=== PATIENT | female | born 1980 | race African-American/Black ===

== ENCOUNTER → 2018-02-09 | Outpatient (CLI) | payer BC | LOC: COL.RAD 07:24 | DX: K21.9 Gastro-esophageal reflux disease without esophagitis (principal); R12 Heartburn; R10.9 Unspecified abdominal pain; R11.0 Nausea | CPT/HCPCS: A9541 ==

== ENCOUNTER → 2018-03-30 | Outpatient (CLI) | payer BC | LOC: COL.RAD 13:37 | DX: R10.9 Unspecified abdominal pain (principal); R11.0 Nausea ==

== ENCOUNTER → 2018-04-13 | Outpatient (CLI) | payer BC | LOC: COL.LAB 09:49 | DX: J90 Pleural effusion, not elsewhere classified (principal) ==

== ENCOUNTER → 2018-09-15 | Outpatient (CLI) | payer BC | LOC: COL.LAB 12:14 | DX: K58.9 Irritable bowel syndrome, unspecified (principal); K21.9 Gastro-esophageal reflux disease without esophagitis ==

== ENCOUNTER → 2019-09-14 | Outpatient (CLI) | payer BC | LOC: MC.RAD 13:52 | DX: N64.4 Mastodynia (principal) | CPT/HCPCS: G0279 ==

== ENCOUNTER → 2020-02-29 | Outpatient (CLI) | payer BC | LOC: COL.LAB 11:55 | DX: R68.2 Dry mouth, unspecified (principal); R43.9 Unspecified disturbances of smell and taste; Z20.828 Contact with and (suspected) exposure to other viral communicable diseases ==

== ENCOUNTER 2021-02-28 23:40 | Emergency (ER) | payer BC ==
[~2021-02-28] VITALS: Ht 162.6 cm; Wt 79.5 kg
[2021-02-28 23:59] VITALS: TEMP 98.4
[2021-03-01 03:30] VITALS: BP 130/60; PULSE 80
== END 2021-03-01 03:35 | disposition home or self-care (01) ==
LOC: COL.ER 23:40
DX: S02.2XXA Fracture of nasal bones, initial encounter for closed fracture (principal); S01.81XA Laceration without foreign body of other part of head, initial encounter; W18.12XA Fall from or off toilet with subsequent striking against object, initial encounter; Y92.009 Unspecified place in unspecified non-institutional (private) residence as the place of occurrence of the external cause

== ENCOUNTER → 2021-06-05 | Outpatient (CLI) | payer BC | LOC: MC.RAD 14:25 | DX: Z12.31 Encounter for screening mammogram for malignant neoplasm of breast (principal); N64.89 Other specified disorders of breast ==

== ENCOUNTER → 2021-06-12 | Outpatient (CLI) | payer BC | LOC: MC.RAD 12:59 | DX: N63.20 Unspecified lump in the left breast, unspecified quadrant (principal); N64.89 Other specified disorders of breast ==

== ENCOUNTER → 2022-04-30 | Outpatient (CLI) | payer OTHER | LOC: COL.RAD 12:22 | DX: M47.22 Other spondylosis with radiculopathy, cervical region (principal); M50.122 Cervical disc disorder at C5-C6 level with radiculopathy ==

== ENCOUNTER → 2022-06-09 | Outpatient (CLI) | payer OTHER | LOC: MC.RAD 07:08 | DX: Z12.31 Encounter for screening mammogram for malignant neoplasm of breast (principal) ==

== ENCOUNTER → 2023-07-21 | Outpatient (CLI) | payer OTHER ==
[~2023-07-21] MED LIST: BENTYL 10MG10 MG/CAP PO; BETAMETHASONE DIPROPIONATE; BUSPAR10 MG PO; FLONASEALLERGY NS; PAMELOR 25MG25 MG PO; PROTONIX 40MG T40 MG PO; XANAX .25M0.25 MG/TA PO; ZANTAC-360 (FAM10 MG PO; ZEBETA10 MG PO; ZOFRAN ODT4 MG PO
== END ==
LOC: CANSCHCLI → MC.RAD 16:24
DX: Z12.31 Encounter for screening mammogram for malignant neoplasm of breast (principal)